=== PATIENT | male | born 1965 | race Two or more races ===

== ENCOUNTER 2016-12-05 16:51 | Emergency (ER) | payer OTHER ==
[2016-12-05] MEDS ORDERED: IOPAMIDOL 370 (76%) 100 ML VIAL IV ONE (16:52)
[2016-12-05] MEDS ORDERED: SODIUM CHLORIDE 0.9% 1,000 ML ONE (18:29)
[2016-12-05] MEDS ORDERED: ONDANSETRON 4 MG/2ML 2 ML VIAL ONE (18:29)
[2016-12-05 18:47] LABS: ABSOLUTE NEUTROPHIL COUNT 13.2 K/mm3 (1.8-7.7); BASO # 0.1 K/mm3 (0.0-0.2); BASO % 0.3 % (0.2-1.0); EOS # 0.1 (0.0-0.5); EOS % 0.5 % (0.9-2.9); HEMATOCRIT 49.4 % (32.0-52.0); HEMOGLOBIN 16.2 gm/l (14.0-18.0); IMM NEUT # 0.1 K/mm3 (0-0.2); IMM NEUT% 0.5 % (0-1); LYMPH # 1.8 (1.0-4.8); LYMPH % 11.3 % (15-45); MEAN CELL VOLUME 81.3 fl (80.0-94.0); MEAN CORPUSCULAR HEMOGLOBIN 26.6 pg (27.0-31.0); MEAN CORPUSCULAR HGB CONC 32.8 g/dl (33.0-37.0); MEAN PLATELET VOLUME 9.8 fl (7.4-10.4); MONO # 0.7 (0.0-0.8); MONO % 4.4 % (4-12); PLATELET COUNT 276 K/mm3 (130-400); RED CELL DISTRIBUTION WIDTH 14.8 % (11.5-14.5)
[2016-12-05 18:56] LABS: SPECIFIC GRAVITY 1.015 (1.001-1.030); URINE BILIRUBIN NEGATIVE (NEGATIVE); URINE BLOOD NEGATIVE (NEGATIVE); URINE GLUCOSE (UA) NEGATIVE (NEGATIVE); URINE LEUKOCYTE ESTERASE NEGATIVE (NEGATIVE); URINE NITRITE NEGATIVE (NEGATIVE); URINE PROTEIN NEGATIVE (NEGATIVE); URINE UROBILINOGEN NORMAL (0-1 mg/dl)
[2016-12-05 18:57] LABS: URINE APPEARANCE CLEAR; URINE COLOR DARK YELLOW
[2016-12-05 19:00] LABS: ALB/GLOB RATIO 1.2 (>1.0); ALBUMIN 4.2 gm/dL (3.5-5.7); CALCIUM 9.9 mg/dL (8.6-10.3)
--- NOTE | 2016-12-05 20:15 | CT ---
ABD/PELVIS W/ CON COMPARISON: None. HISTORY: Sudden onset abdominal pain one and half hours ago. Lower abdominal and left flank pain. Nausea without vomiting. Technique: No oral contrast. Intravenous injection 100 mL Isovue 370. Using a [employer] Aquilion [address] scanner, images were obtained from the diaphragm to the floor the pelvis. An automated dose reduction technique was used to minimize patient radiation dose. Dose information: CTDIvol (mGy): 13.00 DLP(mGycm): 731.00 FINDINGS: Lung bases: Minimal and scarring at the inferior end of the lingula. Inferior mediastinum and heart: Normal. Liver: 6 mm cyst in the right lobe. Gallbladder:Normal. Bile ducts: Normal. Pancreas: Normal. Spleen: Normal. Adrenal glands: Normal. Kidneys: Normal. Ureters: Normal Urinary bladder: Moderately distended. Prostate gland and seminal vesicles: Normal. Blood vessels: Normal Lymph nodes: Normal Stomach: Normal Duodenum: Normal Small intestine: Fluid-filled. Appendix: Normal Colon: Normal Abdominal wall and supporting musculature: Mild left inguinal hernia containing fat. Bones: Normal IMPRESSION: 1. Fluid-filled small intestine and stomach without evidence of obstruction. Gastroenteritis. 2. Normal appendix. 3. Small left angle hernia containing fat. 4. Normal kidneys. No hydronephrosis or stones. The report was sent to the emergency department electronic medical record system 12/05/2016 at 20:16
== END 2016-12-05 21:16 | disposition home or self-care (01) ==
LOC: ED 16:51
DX: K52.9 Noninfective gastroenteritis and colitis, unspecified (principal); I25.2 Old myocardial infarction; E11.9 Type 2 diabetes mellitus without complications; Z79.84 Long term (current) use of oral hypoglycemic drugs
CPT/HCPCS: 85025; 80053; 81003; 74177; 99284 ×2; 96374; J2405; J7030; Q9967